=== PATIENT | female | born 1990 | race American Indian/Alaskan Native ===

== ENCOUNTER 2017-04-19 11:18 | Emergency (ER) | payer SELFPAY ==
[2017-04-19] MEDS ORDERED: MOTRIN PO ONE ×2 (18:03→18:10)
--- NOTE | 2017-04-19 18:10 | Emergency Department Report ---
- General Chief Complaint: Upper Respiratory Infection Stated Complaint: SINUS INFECTION Time Seen by Provider: 04/19/17 16:29 Source: patient Mode of arrival: Ambulatory Limitations: No Limitations - History of Present Illness Initial Comments: This is a 26-year-old female nontoxic, well nourished in appearance, no acute signs of distress presents to the ED with c/o of nasal congestion, rhinorrhea, and frontal sinus pain 4 days. Patient stated had a cough last week but subsided. Patient stated the productive cough is yellow mucus production but now resolved. Patient denies any recent travels, long car rides, recent hospital stays. She denies any calf pain, calf tenderness. Patient denies any chest pain, shortness of breath, difficulty breathing, headache, stiff neck, nausea, vomiting, fever, chills, blurry vision. Patient describes frontal sinus pain as aching and congestion. Patient stated allergies to lemon. Denies PMH. MD Complaint: rhinorrhea, nasal congestion, sinus pain -: days(s) (4) Severity: mild Severity scale (0 -10): 8 Quality: aching Consistency: constant Improves With: nothing Worsens With: nothing Associated Symptoms: headache (frontal sinus pain), rhinorrhea, nasal congestion , cough. denies: fever, chills, myalgias, diaphoresis, sore throat, stiff neck , chest pain, shortness of breath, abdominal pain, nausea, vomiting, diarrhea, dysuria, rash, confusion, right sweats, weight loss, epistaxis, hoarseness, ear pain Treatments Prior to Arrival: none - Related Data Previous Rx's Medication Instructions Recorded Last Taken Type Ibuprofen [Motrin] 600 mg PO Q8H PRN #15 tablet 10/11/15 Unknown Rx Sulfamethoxazole/Trimethoprim 1 each PO BID #20 tablet 10/11/15 Unknown Rx [Bactrim DS TAB] Cephalexin [Keflex] 500 mg PO Q12HR #20 cap 03/02/16 Unknown Rx Ibuprofen [Motrin 600 MG tab] 600 mg PO Q8H PRN #20 tablet 03/02/16 Unknown Rx Amoxicillin/K Clav Tab [Augmentin 1 tab PO Q12HR #20 tab 04/19/17 Unknown Rx 875 mg] Butalb/Acetamin/Caff 50-325-40 1 tab PO Q6HR PRN #20 tab 04/19/17 Unknown Rx [Fioricet] Fluconazole [Diflucan] 150 mg PO DAILY #1 tablet 04/19/17 Unknown Rx Allergies Allergy/AdvReac Type Severity Reaction Status Date / Time lemon Allergy Hives Verified 10/11/15 09:08 ED Review of Systems ROS: Stated complaint: SINUS INFECTION Other details as noted in HPI Constitutional: denies: chills, fever Eyes: denies: eye pain, eye discharge, vision change ENT: denies: ear pain, throat pain Respiratory: denies: cough, shortness of breath, wheezing Cardiovascular: denies: chest pain, palpitations Endocrine: no symptoms reported Gastrointestinal: denies: abdominal pain, nausea, diarrhea Genitourinary: denies: urgency, dysuria, discharge Musculoskeletal: denies: back pain, joint swelling, arthralgia Skin: denies: rash, lesions Neurological: headache (frontal sinus region). denies: weakness, paresthesias Psychiatric: denies: anxiety, depression Hematological/Lymphatic: denies: easy bleeding, easy bruising ED Past Medical Hx - Past Medical History Previous Medical History?: No - Surgical History Past Surgical History?: No - Social History Smoking Status: Never Smoker Substance Use Type: Alcohol - Medications Home Medications: Home Medications Medication Instructions Recorded Confirmed Last Taken Type Ibuprofen [Motrin] 600 mg PO Q8H PRN #15 tablet 10/11/15 Unknown Rx Sulfamethoxazole/Trimethoprim 1 each PO BID #20 tablet 10/11/15 Unknown Rx [Bactrim DS TAB] Cephalexin [Keflex] 500 mg PO Q12HR #20 cap 03/02/16 Unknown Rx Ibuprofen [Motrin 600 MG tab] 600 mg PO Q8H PRN #20 tablet 03/02/16 Unknown Rx Amoxicillin/K Clav Tab [Augmentin 1 tab PO Q12HR #20 tab 04/19/17 Unknown Rx 875 mg] Butalb/Acetamin/Caff 50-325-40 1 tab PO Q6HR PRN #20 tab 04/19/17 Unknown Rx [Fioricet] Fluconazole [Diflucan] 150 mg PO DAILY #1 tablet 04/19/17 Unknown Rx ED Physical Exam - General Limitations: No Limitations General appearance: alert, in no apparent distress - Head Head exam: Present: atraumatic, normocephalic, normal inspection - Eye Eye exam: Present: normal appearance, PERRL, EOMI. Absent: scleral icterus, conjunctival injection, nystagmus, periorbital swelling, periorbital tenderness Pupils: Present: normal accommodation - ENT ENT exam: Present: normal exam, normal orophraynx, mucous membranes moist, TM's normal bilaterally, normal external ear exam - Neck Neck exam: Present: normal inspection, full ROM. Absent: tenderness, meningismus, lymphadenopathy, thyromegaly - Respiratory Respiratory exam: Present: normal lung sounds bilaterally. Absent: respiratory distress - Cardiovascular Cardiovascular Exam: Present: regular rate, normal rhythm, normal heart sounds. Absent: irregular rhythm, systolic murmur, diastolic murmur, rubs, gallop - GI/Abdominal GI/Abdominal exam: Present: soft, normal bowel sounds. Absent: distended, tenderness, rebound, rigid, diminished bowel sounds - Rectal Rectal exam: Present: deferred - Extremities Exam Extremities exam: Present: normal inspection, full ROM, normal capillary refill. Absent: tenderness, pedal edema, joint swelling, calf tenderness - Back Exam Back exam: Present: normal inspection, full ROM. Absent: tenderness, CVA tenderness (R), CVA tenderness (L), muscle spasm, paraspinal tenderness, vertebral tenderness, rash noted - Neurological Exam Neurological exam: Present: alert, oriented X3, CN II-XII intact, normal gait, reflexes normal - Psychiatric Psychiatric exam: Present: normal affect, normal mood - Skin Skin exam: Present: warm, dry, intact, normal color. Absent: rash - Other Other exam information: Positive frontal sinus tenderness. ED Course Vital Signs 04/19/17 04/19/17 04/19/17 12:19 16:30 18:12 Temperature 98.1 F 98.2 F Pulse Rate 93 H Respiratory 16 18 18 Rate Blood Pressure 104/70 92/58 O2 Sat by Pulse 100 Oximetry - Reevaluation(s) Reevaluation #1: 04/19/17 18:15 Patient is speaking in full sentences with no signs of distress noted. ED Medical Decision Making - Medical Decision Making 26-year-old female that presents with sinusitis. Patient is stable and was examined by me. Paatient denies resp symptoms. Patient received motrin in the ED and stated that his symptoms of headache frontal has improved subsided. Patient treated with augmentin at discharge. Patient was instructed Follow-up with a primary care doctor in 3-5 days or if symptoms worsen and continue return to emergency room as soon as possible. At time time of discharge, the patient does not seem toxic or ill in appearance. No acute signs of distress noted. Patient agrees to discharge treatment plan of care. No further questions noted by the patient. Patient requested for empirical treatment of yeast due to getting it on antibiotics. Critical care attestation.: If time is entered above; I have spent that time in minutes in the direct care of this critically ill patient, excluding procedure time. ED Disposition Clinical Impression: Sinusitis Qualifiers: Sinusitis location: frontal Chronicity: acute Recurrence: non-recurrent Qualified Code(s): J01.10 - Acute frontal sinusitis, unspecified Disposition: - TO HOME OR SELFCARE Is pt being admited?: No Does the pt Need Aspirin: No Condition: Stable Instructions: Butalbital/Aspirin/Caffeine (By mouth), Amoxicillin/Clavulanate Potassium (By mouth), Sinusitis (ED) Additional Instructions: Follow-up with a primary care doctor in 3-5 days or if symptoms worsen and continue return to emergency room as soon as possible. Prescriptions: Amoxicillin/K Clav Tab [Augmentin 875 mg] 1 tab PO Q12HR #20 tab Butalb/Acetamin/Caff 50-325-40 [Fioricet] 1 tab PO Q6HR PRN #20 tab PRN Reason: Headache Fluconazole [Diflucan] 150 mg PO DAILY #1 tablet Referrals: LONNIE RECINOS SR, MD [Primary Care Provider] - 3-5 Days PRIMARY CARE, [Referring] - 3-5 Days [facility] [Outside] - 3-5 Days [facility] [Outside] - 3-5 Days Forms: Work/School Release Form(ED)
[2017-04-19 19:21] VITALS: BP 101/63
== END 2017-04-19 19:20 | disposition home or self-care (01) ==
LOC: ED 11:18
DX: J01.10 Acute frontal sinusitis, unspecified (principal); Z91.018 Allergy to other foods
CPT/HCPCS: 99282

== ENCOUNTER 2020-05-12 21:55 | Emergency (ER) | payer OTHER ==
[2020-05-12] MEDS ORDERED: ACETAMINOPHEN 325 MG TAB ONE (22:17)
[2020-05-12] MEDS ORDERED: ACETAMINOPHEN 325 MG TAB PO ONE (22:21)
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
[2020-05-12] MEDS ORDERED: ONDANSETRON 4 MG/2 ML INJ IV ONE (23:18)
[2020-05-12] MEDS ORDERED: fentaNYL 100 MCG/2 ML INJ IV ONE (23:18)
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
[2020-05-12 23:52] LABS: Basophils % (Auto) 0.4 % (0.0-1.8); Eosinophils # (Auto) 0.1 K/mm3 (0.0-0.4); Eosinophils % (Auto) 1.2 % (0.0-4.3); Hematocrit 36.1 % (30.3-42.9); Lymphocytes # (Auto) 2.1 K/mm3 (1.2-5.4); Lymphocytes % (Auto) 31.6 % (13.4-35.0); Mean Corpuscular HGB Conc 33 % (30-34); Mean Corpuscular Volume 89 fl (79-97); Monocytes # (Auto) 0.6 K/mm3 (0.0-0.8); Monocytes % (Auto) 8.4 % (0.0-7.3); Platelet Count 250 K/mm3 (140-440); Red Blood Count 4.04 M/mm3 (3.65-5.03); Red Cell Distribution Width 13.5 % (13.2-15.2)
[2020-05-13 00:06] LABS: Alanine Aminotransferase 10 units/L (7-56); Albumin 4.2 g/dL (3.9-5); BUN/Creatinine Ratio 15; Blood Urea Nitrogen 12 mg/dL (7-17); Calcium 8.7 mg/dL (8.4-10.2); Hemolysis Index 2
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
[2020-05-13 02:43] VITALS: BP 101/65
== END 2020-05-13 02:43 | disposition home or self-care (01) ==
LOC: ED 21:55
DX: S63.612A Unspecified sprain of right middle finger, initial encounter (principal); S39.012A Strain of muscle, fascia and tendon of lower back, initial encounter; S29.012A Strain of muscle and tendon of back wall of thorax, initial encounter; S09.90XA Unspecified injury of head, initial encounter; S40.022A Contusion of left upper arm, initial encounter; S30.1XXA Contusion of abdominal wall, initial encounter; Z98.890 Other specified postprocedural states; Z79.1 Long term (current) use of non-steroidal anti-inflammatories (NSAID); Z79.2 Long term (current) use of antibiotics; Z79.899 Other long term (current) drug therapy; Z91.018 Allergy to other foods; V49.59XA Passenger injured in collision with other motor vehicles in traffic accident, initial encounter; W22.10XA Striking against or struck by unspecified automobile airbag, initial encounter; Y93.89 Activity, other specified; Y92.410 Unspecified street and highway as the place of occurrence of the external cause; Y99.8 Other external cause status
CPT/HCPCS: 36415; 70450; 71111; 72070; 72100; 72125; 73060; 73090; 73120; 73140; 74177; 80053; 84703; 85025; 96374; 96375; 99285; J2405; J3010; Q9967